=== PATIENT | male | born 1960 | race Caucasian/White ===

== ENCOUNTER 2017-01-23 07:55 | Day surgery (SDC) | payer OTHER ==
[~2017-01-23] VITALS: Ht 188 cm; Wt 93.2 kg
[2017-01-23] VITALS (8 sets, daily range): BP systolic 119–138; BP diastolic 72–93; PULSE 66–77; RESP 13–17; O2SAT 94–99
[~2017-01-23 07:55] MED LIST: CeFAZolin Inj 2,000 MG in Dextrose 5% 50 ML IV SCH; GABA-504 PO
[2017-01-23] MEDS ORDERED: MetoCLOpramide 5 mg/mL 2 mL Inj ONE (07:56)
[2017-01-23] MEDS ORDERED: Propofol 10,000 mCg/mL 20 mL Inj ONE (07:56)
[2017-01-23] MEDS ORDERED: fentaNYL-PF 50 mCg/mL 2 mL Inj ONE (07:56)
[2017-01-23] MEDS ORDERED: Dexamethasone 4 mg/mL Inj ONE (07:56)
[2017-01-23] MEDS ORDERED: Ondansetron 2 mg/mL 2 mL Inj ONE (07:56)
[2017-01-23] MEDS: Lactated Ringer's 1,000 ML IV SCH ×2 (08:05→10:27)
[2017-01-23] MEDS ORDERED: CeFAZolin Inj 2 gm / 50mL D5W IV ONE (08:07)
[2017-01-23] MEDS ORDERED: Lactated Ringer's 1,000 ML IV SCH (10:24)
[2017-01-23] MEDS ORDERED: Lactated Ringer's 500 ML IV PRN (10:24)
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
[2017-01-23] MEDS ORDERED: MetoCLOpramide 5 mg/mL 2 mL Inj IVPUSH PRN (10:25)
[2017-01-23] MEDS ORDERED: HYDROmorphone 1 mg/mL Inj IVPUSH PRN (10:25)
[2017-01-23] MEDS ORDERED: fentaNYL-PF 50 mCg/mL 2 mL Inj IVPUSH PRN (10:25)
[2017-01-23] MEDS ORDERED: Labetalol 5 mg/mL 4 mL Inj IV PRN (10:25)
[2017-01-23] MEDS ORDERED: Atropine 0.4 mg/mL Inj IVPUSH PRN (10:25)
[2017-01-23] MEDS ORDERED: EPHEDrine Sulfate 50 mg/mL Inj IVPUSH PRN (10:25)
[2017-01-23] MEDS ORDERED: Ondansetron 2 mg/mL 2 mL Inj IVPUSH PRN (10:25)
[2017-01-23] MEDS ORDERED: Phenylephrine 10,000 mCg/mL Inj IVPUSH PRN (10:25)
[2017-01-23] MEDS ORDERED: Bupivacaine-MPF 0.25% 30 mL Inj INFILTRATE ONE (10:26)
[2017-01-23] MEDS ORDERED: Bupivacaine-MPF 0.25%/EPI 30 mL Inj INJ ONE (10:26)
[2017-01-23] MEDS ORDERED: oxyCODONE-Acetamin 5-325 mg Tablet PO PRN (11:05)
--- NOTE | 2017-01-23 11:47 | OP ---
[address] [address] OPERATIVE REPORT PATIENT: LOPEZ POWERS : 1960 MR#: [id number] ADMIT: 01/23/2017 JOB ID: [id number] DATE OF SURGERY: 01/23/2017 ANESTHESIA: General. PREOPERATIVE DIAGNOSIS(ES): Symptomatic right inguinal hernia. POSTOPERATIVE DIAGNOSIS(ES): Symptomatic right inguinal hernia (indirect with sliding component). OPERATION: Open repair of inguinal hernia with mesh. SURGEON: Heladio Drew MD. SALES EFFECTIVENESS MANAGER: Yasmany Dowling PA-C (the casino assistant manager was required for the safe and timely completion of the case). COMPLICATIONS: None. ESTIMATED BLOOD LOSS: Less than 5 mL. CONDITION: Satisfactory. SPECIMEN: None. FINDINGS: There was a moderate-sized indirect hernia with a sliding component. There was also a cord lipoma. Both of these reduced. The hernia was repaired with a large soft mesh. INDICATIONS/SIGNIFICANT HISTORY: The patient is a 56-year-old man who recently noted a right groin discomfort after using a jackhammer. He then developed a lump. He was eventually referred to me and diagnosed with a hernia. Because of ongoing symptoms, he elected to undergo repair. OPERATIVE TECHNIQUE: The patient was taken into the operating room and placed in a supine position. General anesthesia was administered and perioperative antibiotics were given. The abdomen and groin were prepped and draped in a standard surgical fashion. A procedure pause performed. Local anesthetic was injected and a right inguinal incision made. Dissection was carried down through skin and subcutaneous tissue. The aponeurosis of the external oblique fascia was then opened in line with the fibers to open up the external ring. The cord was then circumferentially dissected. The floor appeared intact. The cord was investigated and the hernia sac noted. This was opened. There seemed to be one wall that seemed to have a sliding component containing fat. I therefore elected to just dissect the sac free from the cord and then reduce it without excising it. There was also a cord lipoma, which I also reduced. I placed a single stitch to keep this reduced with 3-0 Vicryl. A piece of soft polypropylene mesh was then trimmed to the appropriate size and secured in place using interrupted 2-0 PDS sutures. The result was a nice re-creation of the internal ring with reinforcement of the floor. The aponeurosis of the external oblique was then closed using a running 3-0 Vicryl. Marifer's was closed with interrupted 3-0 Vicryl, followed by running 4-0 Monocryl for the skin. The entire procedure was well tolerated without complications.
--- NOTE | 2017-01-23 12:02 | PCM.ANEP1 ---
Post Anesthesia Phase 1 PACU Phase 1 Assessment Vital Signs Vital Signs Date Time Temp Pulse Resp B/P Pulse Ox O2 Delivery O2 Flow Rate FiO2 01/23/17 11:35 74 14 138/72 96 Room Air 01/23/17 11:25 75 16 125/93 95 Room Air 01/23/17 11:15 76 14 134/79 96 Room Air 01/23/17 11:10 77 13 125/73 95 Simple Mask 10 01/23/17 11:05 75 16 119/74 94 Simple Mask 10 01/23/17 11:00 36.5 76 14 122/74 99 Simple Mask 10 01/23/17 08:13 36 66 16 128/74 98 Room Air Anesthetic Administered: GA Level of Alertness: Awake, talking CHILDRESS's with Equal Strength: Yes Pain: No Nausea or Vomiting: No Cardiovascular Function and Hy: No Oxygen Delivery: Simple Mask Lungs: Clear to Auscultation, Normal Air Movement Dermatome Level: Full Sensation Complications: No Follow up Care: No Rudi Mcarthur MD January 23, 2017 12:02
== END 2017-01-23 23:59 | disposition home or self-care (01) ==
LOC: SAS 07:55
PROVIDERS: ATTEND General Practice
DX: K40.90 Unilateral inguinal hernia, without obstruction or gangrene, not specified as recurrent (principal); J30.2 Other seasonal allergic rhinitis; R56.9 Unspecified convulsions; M19.90 Unspecified osteoarthritis, unspecified site
CPT/HCPCS: 49505; C1781; J0690; J1100; J1885; J2405; J2765; J3010; J7120